=== PATIENT | male | born 1985 ===

== ENCOUNTER 2022-03-17 18:58 | Inpatient (IN) ==
[2022-03-17] MEDS ORDERED: Ondansetron ODT 4 mg TAB 4 MG TAB PO ONE (20:40)
[2022-03-17 21:19] LABS: Urine Appearance Clear; Urine Bilirubin Negative (Negative); Urine Blood Negative (Negative); Urine Color Yellow; Urine Glucose Negative (Negative); Urine Ketones 1+ (Negative); Urine Nitrite Negative (Negative); Urine Protein Negative (Negative); Urine Specific Gravity 1.012 (1.002-1.030); Urine Urobilinogen Negative (Negative)
[2022-03-17] MEDS ORDERED: Metoclopramide 5 MG/ML VIAL (10 mg) IM ONE (21:23)
[2022-03-17 21:47] LABS: Urine Benzodiazepine Screen None Detected (None Detect); Urine Cannabinoids Screen None Detected (None Detect); Urine Opiates Screen None Detected (None Detect)
[2022-03-18 00:19] LABS: ABS Lymphocytes 1.4 10^3/ul (1.0-4.8); ABS Monocytes 0.6 10^3/ul (0-0.8); Eosinophil % 0.1 %; Hematocrit 47 % (42-52); Hemoglobin 15.9 g/dL (14.0-18.0); Lymphocyte % 11.3 %; Mean Corpuscular HGB Conc 34 g/dL (31-36); Mean Corpuscular Hemoglobin 30 pg (27-31); Mean Corpuscular Volume 88 fL (80-94); Mean Platelet Volume 9.9 fL (7.4-10.4); Platelet Count 221 10^3/uL (150-450); Red Blood Count 5.36 10^6 /uL (4.18-5.48); Red Cell Distribution Width 13 % (10-15)
[2022-03-18 00:41] LABS: High Sens Troponin Baseline 22 pg/mL (<20)
[2022-03-18 00:59] LABS: ALT 23 U/L (7-52); Acetaminophen < 15 mcg/mL; Albumin 4.7 g/dL (3.2-5.2); Albumin/Globulin Ratio 1.5 (1-3); Alcohol, S < 13 mg/dL (<13); Alkaline Phosphatase 55 U/L (35-149); Blood Urea Nitrogen 12 mg/dL (6-24); CO2 Carbon Dioxide 28 mmol/L (22-32); Calcium 9.4 mg/dL (8.6-10.3); Chloride 102 mmol/L (101-111); Globulin 3.1 g/dL (2-4); Glucose 95 mg/dL (70-100); Salicylate < 2.50 mg/dL (<30); Sodium 137 mmol/L (135-145); Total Protein 7.8 g/dL (6.4-8.9); eGFR CKD-EPI 117.5 (>60)
[2022-03-18 01:04] LABS: Anion Gap 7 mmol/L (2-11)
[2022-03-18 01:10] LABS: TSH Ultra Thyroid Stim Horm 0.77 mcIU/mL (0.34-5.60)
[2022-03-18 02:12] LABS: High Sensitivity Troponin 1 Hr 22 pg/mL (<20)
[2022-03-18 02:37] LABS: Potassium Redraw 4.4 mmol/L (3.5-5.0)
[2022-03-18] MEDS ORDERED: Lorazepam PYXIS KEY PRN ×2 (13:48→14:03)
[2022-03-18] MEDS ORDERED: LORazepam 2 mg VIAL 1 ml IV PUSH ONE (13:48)
[2022-03-18] MEDS ORDERED: LORazepam 2 mg VIAL 1 ml IM ONE (14:03)
[2022-03-18] MEDS ORDERED: Al Hydrox/Mg Hydrox/Simet LIQ 30 ML UDC PO PRN (16:37)
[2022-03-18 20:43] LABS: Urine Benzodiazepine Screen None Detected (None Detect); Urine Buprenorphine Screen None Detected (None Detect); Urine Cannabinoids Screen None Detected (None Detect); Urine Fentanyl Screen None Detected (None Detect); Urine Hydrocodone Screen None Detected (None Detect); Urine Opiates Screen None Detected (None Detect)
[2022-03-19] MEDS: Vitamin THERAPEUTIC TAB PO SCH (10:23)
[2022-03-19] MEDS ORDERED: Nicotine Lozenge mini 4 MG LOZNG.MINI MT PRN (14:08)
[2022-03-20] MEDS: Vitamin THERAPEUTIC TAB PO SCH (09:18)
[2022-03-20] MEDS: Nicotine GUM 4MG FRUIT FLAVOR PO PRN (15:15)
[2022-03-21] MEDS: Vitamin THERAPEUTIC TAB PO SCH (07:46)
[2022-03-21] MEDS: Nicotine GUM 4MG FRUIT FLAVOR PO PRN ×2 (12:27→17:30)
[2022-03-22] MEDS: Vitamin THERAPEUTIC TAB PO SCH (09:13)
[2022-03-22] MEDS: Nicotine GUM 4MG FRUIT FLAVOR PO PRN (19:14)
[2022-03-23] MEDS: Vitamin THERAPEUTIC TAB PO SCH (08:31)
[2022-03-23] MEDS: Nicotine Lozenge mini 4 MG LOZNG.MINI MT PRN ×2 (08:33→12:12)
[2022-03-23 08:35] VITALS: BP 120/79
== END 2022-03-23 13:55 | disposition home or self-care (01) | DRG 773 ==
LOC: ED 18:58 → BSU 03-18 14:28
PROVIDERS: ADMIT Psychiatry & Neurology Addiction Psychiatry; ATTEND Psychiatry & Neurology Psychiatry